=== PATIENT | female | born 1980 | race African-American/Black ===

== ENCOUNTER 2016-09-29 08:08 | Outpatient (CLI) | payer MEDICARE, OTHER ==
[2016-09-29 09:13] LABS: Blood, Urine Negative (Negative); Clarity Cloudy (Clear); Glucose, Urine (Dipstick) Negative (Negative); Leukocyte Trace (Negative); Nitrite Negative (Negative); Protein, Urine (Dipstick) > or equal to 300 mg/dL (Neg-Trace); Specific Gravity, Urine 1.015 (1.005-1.030)
[2016-09-29 09:28] LABS: pH, Urine Greater/Equal 9.0 (5.0-9.0)
[2016-09-29 09:30] LABS: Bilirubin Negative (Negative); Icto Negative (Negative); RBC/HPF None Seen HPF (0-3); WBC/HPF 0-3 HPF (0-3)
[2016-09-29 09:31] LABS: Bacteria/HPF 4+ HPF (None Seen)
== END 2016-09-29 08:09 | disposition home or self-care (01) ==
LOC: NAV LAB 08:08
PROVIDERS: ATTEND Family Medicine
DX: R80.9 Proteinuria, unspecified (principal)
CPT/HCPCS: 81001; 87077; 87086; 87186

== ENCOUNTER 2016-10-10 23:09 | Emergency (ER) | payer MEDICARE, OTHER ==
[2016-10-10] MEDS ORDERED: diphenhydrAMINE HCl 50 MG/ML 1 ML VIAL ONE (23:23)
[2016-10-10] MEDS ORDERED: Acetaminophen 500 MG TAB ONE (23:23)
== END 2016-10-10 23:55 | disposition home or self-care (01) ==
LOC: NAV ERS 23:09
DX: T78.40XA Allergy, unspecified, initial encounter (principal); K21.9 Gastro-esophageal reflux disease without esophagitis
CPT/HCPCS: 96372; J1200

== ENCOUNTER 2016-11-10 19:28 | Emergency (ER) | payer MEDICARE, OTHER ==
[2016-11-10] MEDS ORDERED: diphenhydrAMINE HCl 50 MG/ML 1 ML VIAL ONE (20:09)
[2016-11-10] MEDS ORDERED: Ketorolac Tromethamine 30 MG/ML VIAL ONE (20:09)
[2016-11-10] MEDS ORDERED: Sodium Chloride 0.9% 1,000 ML ONE (20:09)
[2016-11-10] MEDS ORDERED: Prochlorperazine 10 MG/2 ML VIAL ONE (20:09)
[2016-11-10 20:36] LABS: #Lymphocytes 2.8 thou/uL (1.20-3.40); #Monocytes 0.4 thou/uL (0.11-0.59); %Basophils 0.6 % (0.0-1.0); %Eosinophils 0.5 % (0.0-10.0); %Lymphocytes 38.5 % (21.0-51.0); %Monocytes 5.6 % (0.0-10.0); %Neutrophils 54.8 % (42.0-75.0); Hemoglobin 12.6 g/dL (12.0-16.0); Mean Corpuscular HGB CONC 31.1 g/dL (32.0-36.0); Mean Corpuscular Hemoglobin 25.8 pg (27.0-31.0); Mean Platelet Volume 6.4 fL (7.4-10.4); Platelet Count 245 thou/uL (130-400); RBC Distribution Width 14.4 % (11.5-14.5); Red Blood Cell (RBC) Count 4.87 mill/uL (4.20-5.40); White Blood Cell (WBC) Count 7.2 thou/uL (4.8-10.8)
[2016-11-10 20:37] LABS: Pregnancy Test - Urine (BHCG) Negative (Negative); Pregu Control Background? CLEAR/WHITE (CLR/WHITE); Pregu Control Bar Appear? YES (CONTROL BAR); Specific Gravity 1.021 (1.002-1.036)
[2016-11-10 20:41] LABS: Amphetamine Not Detected (NotDetected); Barbiturates Screen Detected (NotDetected); Benzodiazepine Screen Not Detected (NotDetected); Cocaine Metabolite Screen Not Detected (NotDetected); Medtox Control Line Valid? VALID (VALID); Methadone Not Detected (NotDetected); Methamphetamine Not Detected (NotDetected); Opiate Screen Not Detected (NotDetected); Oxycodone Screen Not Detected (NotDetected); Phencyclidine (PCP) Not Detected (NotDetected); THC/Cannabinoid Screen Not Detected (NotDetected); Tricyclic Screen Not Detected (NotDetected)
[2016-11-10 20:50] LABS: ALT (SGPT) 6 U/L (8-55); AST (SGOT) 18 U/L (5-34); Albumin 4.5 g/dL (3.5-5.0); Alkaline Phosphatase 65 U/L (40-150); Anion Gap 20 mmol/L (10-20); BUN (Urea Nitrogen) 11 mg/dL (7.0-18.7); Bilirubin, Total 0.4 mg/dL (0.2-1.2); CRP (Inflammatory) Less than 0.50 mg/dL (= or < 0.5); Calc. Creatinine Clearance 0 mL/min (70-130); Carbon Dioxide 28 mmol/L (22-29); Chloride 100 mmol/L (98-107); Estimated GFR-MDRD Greater than 90; Glucose 123 mg/dL (70-105); Potassium 3.3 mmol/L (3.5-5.1); Protein, Total 7.5 g/dL (6.0-8.3); Sodium 145 mmol/L (136-145)
--- NOTE | 2016-11-10 21:33 | CT ---
NONCONTRAST CT HEAD: Date: 11-10-16 History: Headache for one week with nausea. FINDINGS: There is no evidence of a hemorrhage, acute infarction, mass effect or midline shift. Ventricular sy stem is normal in size, shape and position. Visualized paranasal sinuses and mastoid air cells are c lear. Calvarial structures are intact. IMPRESSION: No acute intracranial abnormality demonstrated. POS: [facility]
== END 2016-11-10 22:00 | disposition home or self-care (01) ==
LOC: NAV ERS 19:28
DX: R51 Headache (principal); K21.9 Gastro-esophageal reflux disease without esophagitis
CPT/HCPCS: 70450; 80053; 80306; 81025; 85025; 85652; 86140; 96361; 96374; 96375; J0780; J1200; J1885; J7050

== ENCOUNTER 2017-05-02 21:02 | Emergency (ER) | payer MEDICARE, OTHER ==
[2017-05-02] MEDS ORDERED: Hydrocodone-Acetamin 15 ML UDCUP ONE (22:15)
[2017-05-02] MEDS ORDERED: Ibuprofen 200 MG TAB ONE (22:15)
[2017-05-02] MEDS ORDERED: Oseltamivir 75 MG CAP ONE (22:15)
== END 2017-05-02 22:19 | disposition home or self-care (01) ==
LOC: NAV ERS 21:02
DX: J11.1 Influenza due to unidentified influenza virus with other respiratory manifestations (principal); K21.9 Gastro-esophageal reflux disease without esophagitis; Z79.899 Other long term (current) drug therapy
CPT/HCPCS: 99283

== ENCOUNTER 2017-08-24 16:18 | Emergency (ER) | payer MEDICARE, OTHER ==
[2017-08-24] MEDS ORDERED: diphenhydrAMINE 50 MG/ML VIAL ONE (16:47)
[2017-08-24] MEDS ORDERED: Prochlorperazine 10 MG/2 ML VIAL ONE (16:48)
[2017-08-24] MEDS ORDERED: Ketorolac Tromethamine 30 MG/ML VIAL ONE (16:48)
== END 2017-08-24 17:45 | disposition home or self-care (01) ==
LOC: NAV ERS 16:18
DX: R51 Headache (principal); K21.9 Gastro-esophageal reflux disease without esophagitis; Z79.899 Other long term (current) drug therapy
CPT/HCPCS: 96365; 96375; J0780; J1200; J1885

== ENCOUNTER 2017-09-19 20:46 | Emergency (ER) | payer MEDICARE, OTHER | END 2017-09-19 21:30 | disposition home or self-care (01) | LOC: NAV ERS 20:46 | DX: R03.0 Elevated blood-pressure reading, without diagnosis of hypertension (principal); K02.9 Dental caries, unspecified; K21.9 Gastro-esophageal reflux disease without esophagitis; Z79.899 Other long term (current) drug therapy | CPT/HCPCS: 99283 ==

== ENCOUNTER 2017-11-21 00:14 | Observation (INO) | payer MEDICARE, OTHER ==
[2017-11-21 00:41] LABS: Bilirubin Negative (Negative); Blood, Urine Negative (Negative); Clarity Clear (Clear); Glucose, Urine (Dipstick) Negative (Negative); Leukocyte Trace (Negative); Nitrite Negative (Negative); Protein, Urine (Dipstick) 100 mg/dL (Neg-Trace)
[2017-11-21 00:42] LABS: Pregnancy Test - Urine (BHCG) Negative (Negative); Pregu Control Background? CLEAR/WHITE (CLR/WHITE); Pregu Control Bar Appear? YES (CONTROL BAR)
[2017-11-21 00:43] LABS: pH, Urine Greater/Equal 9.0 (5.0-9.0)
[2017-11-21 00:44] LABS: Bacteria/HPF Rare-Few HPF (None Seen); RBC/HPF None Seen HPF (0-3); WBC/HPF 0-3 HPF (0-3)
[2017-11-21] MEDS ORDERED: Lidocaine Viscous Sol 2% 15 ml UD Cup ONE (00:46)
[2017-11-21] MEDS ORDERED: Mag-Al Plus 1200 MG/1200 MG/120 MG/30 ML UDCUP ONE (00:46)
[2017-11-21] MEDS ORDERED: Pantoprazole 40 MG VIAL ONE (00:46)
[2017-11-21] MEDS ORDERED: Ondansetron HCl/PF 4 MG/2 ML Vial ONE (00:46)
[2017-11-21 01:12] LABS: Anisocytosis SLIGHT = 6-15 cells (100X) (0-5/hpf); Eosinophils 1 % (0-10); Hemoglobin 11.9 g/dL (12.0-16.0); Lymphocytes 41 % (21-51); MDiff Complete? YES; Mean Corpuscular HGB CONC 30.9 g/dL (32.0-36.0); Mean Corpuscular Hemoglobin 24.5 pg (27.0-31.0); Mean Corpuscular Volume 79.3 fL (78.0-98.0); Mean Platelet Volume 6.3 fL (7.4-10.4); Microcytosis SLIGHT = 6-15 cells (100X) (0-5/hpf); Monocytes 7 % (0-10); Neutrophil 41 % (42-75); Ovalocytes SLIGHT = 2-5 cells (100X) (0-1/hpf); PLT Morphology Comment Appears Adequate; Platelet Count 343 thou/uL (130-400); Poikilocytosis SLIGHT = 6-15 cells (100X) (0-5/hpf); RBC Distribution Width 13.7 % (11.5-14.5); Reactive Lymphocytes 10 % (0-10); Red Blood Cell (RBC) Count 4.85 mill/uL (4.20-5.40); White Blood Cell (WBC) Count 7.7 thou/uL (4.8-10.8)
[2017-11-21 01:16] LABS: ALT (SGPT) 7 U/L (8-55); AST (SGOT) 21 U/L (5-34); Albumin 4.4 g/dL (3.5-5.0); Alkaline Phosphatase 61 U/L (40-150); Anion Gap 19 mmol/L (10-20); BUN (Urea Nitrogen) 11 mg/dL (7.0-18.7); Bilirubin, Total 0.6 mg/dL (0.2-1.2); Calc. Creatinine Clearance 0 mL/min (70-130); Calcium 10.1 mg/dL (7.8-10.44); Carbon Dioxide 34 mmol/L (22-29); Chloride 91 mmol/L (98-107); Estimated GFR-MDRD Greater than 90; Globulin 3.4 g/dL (2.4-3.5); Glucose 118 mg/dL (70-105); Lipase 39 U/L (8-78); Protein, Total 7.8 g/dL (6.0-8.3); Sodium 142 mmol/L (136-145)
[2017-11-21 01:19] LABS: Potassium 2.1 mmol/L (3.5-5.1)
[2017-11-21] MEDS ORDERED: Potassium Chloride 10 MEQ/100 ML PREMIX BAG ONE ×2 (01:22→08:15)
[2017-11-21] MEDS ORDERED: Potassium Chloride 20 MEQ TAB ONE (02:01)
[2017-11-21 04:09] VITALS: BMI 19.6
[2017-11-21] MEDS ORDERED: Ondansetron HCl/PF 4 MG/2 ML Vial IVP PRN ×2 (05:12→06:35)
[2017-11-21 05:23] LABS: Anion Gap 14 mmol/L (10-20)
[2017-11-21 05:28] LABS: BUN (Urea Nitrogen) 10 mg/dL (7.0-18.7); Calc. Creatinine Clearance 96 mL/min (70-130); Calcium 8.4 mg/dL (7.8-10.44); Carbon Dioxide 29 mmol/L (22-29); Chloride 100 mmol/L (98-107); Estimated GFR-MDRD Greater than 90; Glucose 96 mg/dL (70-105); Potassium 2.7 mmol/L (3.5-5.1); Sodium 140 mmol/L (136-145)
[2017-11-21] MEDS ORDERED: Potassium Chloride 20 MEQ in Premix Bag 1 BAG IVPB SCH (06:00)
[2017-11-21 06:34] LABS: Potassium 2.5 mmol/L (3.5-5.1)
[2017-11-21] MEDS ORDERED: Pantoprazole 40 MG VIAL IVP SCH (09:00)
[2017-11-21] MEDS: Potassium Chloride 20 MEQ in Premix Bag 1 BAG IVPB SCH ×3 (09:22→20:36)
[2017-11-21] MEDS: FLUoxetine HCl 20 MG CAP PO SCH (09:27)
[2017-11-21] MEDS: Potassium Chloride 10 MEQ TAB PO SCH ×2 (09:27→20:36)
--- NOTE | 2017-11-21 12:23 | HP ---
DATE OF ADMISSION: 11/21/2017. HISTORY OF PRESENT ILLNESS: Ms. Blancas is a 36-year-old black female that comes to the emergency room complaining of vomiting, right upper quadrant epigastric pain and feels like something hung up i n her stomach. She was seen in the emergency room and evaluated. She was found to be significantly hypokalemic with a potassium of 2.1. She was given oral and IV potassium and admitted for further hy dration. She was given a couple liters of fluid and IV potassium and states she felt much better. S he was admitted to the hospital in observation for continue correction of her potassium. The patient states she feels much better this morning, but she still has some epigastric tenderness. She has seen Dr. Brandt Helms several years ago and had evaluation at that time, which was unremarkabl e. She has been given oral potassium and IV potassium and the potassium was 2.7 and 2.5 respectively this morning. It was felt that we need to probably continue her in the hospital in an extended obse rvation for continued oral and IV potassium. PAST MEDICAL HISTORY: Basically is unremarkable except for years and years of this epigastric pain. She has a primary care doctor in [facility], but cannot remember his name, but just knows it starts with the Z. ALLERGIES: Patient has no known drug allergies. PRESENT MEDICATIONS: Reveal she takes fluoxetine 20 mg every day, and now she is on potassium 30 mEq twice a day along with 20 mEq IV q.6 hours. SOCIAL HISTORY: Reveals the patient does not smoke, does not drink any alcohol. Does not do any narciso gs. FAMILY HISTORY: Unremarkable. PAST SURGICAL HISTORY: Reveals the patient had no surgeries. PSYCHIATRIC HISTORY: Reveals the patient has anxiety and depressive disorder, she is on fluoxetine 2 0 mg daily. REVIEW OF SYSTEMS: Constitutional: The patient denies fever, chills, cough, cold or congestion. De nies any GI symptoms recently. HEENT: She denies cough, cold, congestion, sore throat or rhinorrhea . Respiratory: The patient denies shortness of breath, wheezing, sneezing or cough. Cardiac: The patient denies palpitations, chest pain, racing or skipping heartbeat. Gastrointestinal: The patien t complains of epigastric pain. Denies any diarrhea or constipation. She does report nausea and deandra e vomiting at times. She states that she is not sure what she ate, but something irritated her stoma ch. Genitourinary: Reveals the patient denies frequency, urgency, hematuria or dysuria. Extremitie s: Revealed the patient denies any arthritis, musculoskeletal pain. Neurological: The patient carlo es headache, focal neurological deficits. The patient denies any dizziness. PHYSICAL EXAMINATION: GENERAL: This is a well-developed, well-nourished, very pleasant black female in no apparent distres s at this time. HEENT: Reveals normocephalic, nontraumatic cranium. Pupils are equally round and reactive. Extraoc ular movements are intact. The patient is nonicteric, conjunctivae are normal. NECK: Supple, without masses, nodes or bruits. Trachea is midline. CHEST: Clear to auscultation. No rales, rhonchi, wheezes or cough is noted. HEART: Reveals a regular rate and rhythm without murmurs, gallops or rubs. ABDOMEN: Reveals some epigastric tenderness, no right upper quadrant tenderness, right lower quadran t tenderness is noted. Bowel sounds are normal and positive in all four quadrants. No hepatosplenom egaly is noted. Patient has no rebound or guarding. GENITOURINARY: Deferred. EXTREMITIES: Reveal no clubbing, cyanosis or edema. ASSESSMENT: 1. Epigastric tenderness with prior evaluation by Dr. Brandt Helms, couple years ago. 2. Hypokalemia, which is improved. 3. Dehydration. 4. Anxiety and depressive disorder. PLAN: 1. The patient has been admitted and she is getting oral and IV potassium. 2. We will make sure she has a bland soft diet at this time. 3. Continue supportive care. 4. Repeat labs about 0430, which are to be called directly to me at that time. 5. At that time, we will see if we need to continue or slow down her IV and/or oral potassium. 6. After discharge, the patient will have follow up with Dr. Brandt Helms or someone in his office for further epigastric pain evaluation. 7. Continue to monitor the patient's oral intake and pain management.
[2017-11-21 17:04] LABS: Anion Gap 11 mmol/L (10-20); BUN (Urea Nitrogen) 8 mg/dL (7.0-18.7); Calc. Creatinine Clearance 98 mL/min (70-130); Calcium 8.1 mg/dL (7.8-10.44); Carbon Dioxide 25 mmol/L (22-29); Chloride 108 mmol/L (98-107); Estimated GFR-MDRD Greater than 90; Glucose 130 mg/dL (70-105); Potassium 3.3 mmol/L (3.5-5.1); Sodium 141 mmol/L (136-145)
[2017-11-22 05:07] LABS: #Lymphocytes 2.1 thou/uL (1.20-3.40); #Monocytes 0.3 thou/uL (0.11-0.59); #Neutrophils 2.8 thou/uL (1.40-6.50); %Basophils 0.3 % (0.0-1.0); %Eosinophils 0.7 % (0.0-10.0); %Lymphocytes 40.3 % (21.0-51.0); %Monocytes 6.1 % (0.0-10.0); %Neutrophils 52.6 % (42.0-75.0); Anisocytosis MODERATE=16-30 cells (100X) (0-5/hpf); Hemoglobin 9.6 g/dL (12.0-16.0); MDiff Complete? YES; Mean Corpuscular HGB CONC 30.9 g/dL (32.0-36.0); Mean Corpuscular Hemoglobin 24.8 pg (27.0-31.0); Mean Corpuscular Volume 80.3 fL (78.0-98.0); Mean Platelet Volume 5.7 fL (7.4-10.4); PLT Morphology Comment Appears Adequate; Platelet Count 239 thou/uL (130-400); RBC Distribution Width 14.6 % (11.5-14.5); Red Blood Cell (RBC) Count 3.87 mill/uL (4.20-5.40); White Blood Cell (WBC) Count 5.3 thou/uL (4.8-10.8)
[2017-11-22 05:17] LABS: Anion Gap 10 mmol/L (10-20); BUN (Urea Nitrogen) 9 mg/dL (7.0-18.7); Calc. Creatinine Clearance 102 mL/min (70-130); Calcium 8.5 mg/dL (7.8-10.44); Carbon Dioxide 24 mmol/L (22-29); Chloride 111 mmol/L (98-107); Estimated GFR-MDRD Greater than 90; Glucose 126 mg/dL (70-105); Potassium 3.7 mmol/L (3.5-5.1); Sodium 141 mmol/L (136-145)
--- NOTE | 2017-11-22 07:31 | DIS ---
DATE OF ADMISSION: 11/21/2017 DATE OF DISCHARGE: 11/22/2017 Ms. Blancas is a very pleasant 36-year-old black female that came to the emergency room complaining of nausea, vomiting, right upper epigastric pain. She was seen in the emergency room, found to be h ypokalemic with a potassium 2.0 and dehydrated. She was given IV fluids and IV potassium and oral po tassium. She was kept on a full liquid diet yesterday and has tolerated everything. This morning, h er potassium is up to 3.7. She states she has no abdominal pain. She states she is hungry. She sta rula she wants to go home. She states she is back to her normal self. Vital signs, this morning, reveal blood pressure 110/62, pulse 64, respirations 18-20 on room air, O2 sat 96%-97% on room air, T-max 98.6. Patient's laboratory this morning reveals white count 5300, hemoglobin 9.6, hematocrit 31.1 from hemo dilution from IV fluids and platelets were 239. Sodium 141, potassium 3.7, chloride 111, carbon dioxide 24 with a BUN of 9, creatinine 0.62, GFR grea ter than 90. Sugar this morning is 126. PHYSICAL EXAMINATION: GENERAL: This is a well-developed, well-nourished, very pleasant black female that pops out of bed a s soon as I walked into the door. HEENT: Reveals normocephalic, nontraumatic cranium. Pupils equally round and reactive. Extraocular movements intact. Nose and throat slightly dry. NECK: Supple, without mass, nodes, bruits. CHEST: Clear to auscultation. No rales, rhonchi, or wheezes are heard. HEART: Reveals a regular rate and rhythm without murmurs, gallops, or rubs. ABDOMEN: Soft, nontender, without organomegaly. Normal bowel sounds are noted. No rebound or guard ing is noted. Epigastric area is nontender anymore. Patient has no rebound or guarding. GENITOURINARY EXAM: Deferred. EXTREMITIES: Reveal no clubbing, cyanosis, and no edema. ASSESSMENT: 1. Hypokalemia, which is resolved. 2. Dehydration, resolved. 3. Anxiety/depressive disorder. Continue fluoxetine. 4. Epigastric tenderness with prior evaluation by Dr. Brandt Helms many years ago. Recommend the desmond ent see her PCP and get referred back for further evaluation for him since she has been having ongoin g problems with her epigastric area for the last 1-2 years. PLAN: 1. The patient is being discharged this morning. 2. Encouraged the patient to eat bananas, potatoes, and other things that have potassium. 3. See the patient's PCP within the next week. 4. Continue supportive care. 5. Referral to Dr. Brandt Helms from the patient's PCP.
[2017-11-22 08:17] VITALS: BP 102/54; TEMP 97.9
[2017-11-22] MEDS: Potassium Chloride 10 MEQ TAB PO SCH (09:24)
[2017-11-22] MEDS: FLUoxetine HCl 20 MG CAP PO SCH (09:24)
== END 2017-11-22 09:41 | disposition home or self-care (01) ==
LOC: NAV ERS 00:14 → NAV ACUTE 03:41
PROVIDERS: ADMIT Family Medicine; ATTEND Family Medicine
DX: E87.6 Hypokalemia (principal); E86.0 Dehydration; F41.9 Anxiety disorder, unspecified; F32.9 Major depressive disorder, single episode, unspecified; Z79.899 Other long term (current) drug therapy
CPT/HCPCS: 36415; 80048; 80053; 81003; 81015; 81025; 83690; 85025; 93005; 96365; 96366; 96375; 96376; C9113; G0378; J2405; J3480

== ENCOUNTER 2017-12-16 16:17 | Emergency (ER) | payer MEDICARE, OTHER ==
[2017-12-16] MEDS ORDERED: Potassium Chloride 10 MEQ/100 ML PREMIX BAG ONE ×4 (16:56→21:25)
[2017-12-16] MEDS ORDERED: Sodium Chloride 0.9% 1,000 ML ONE (16:56)
[2017-12-16] MEDS ORDERED: Potassium Chloride 20 MEQ TAB ONE ×2 (21:25→23:44)
[2017-12-16] MEDS ORDERED: Ondansetron PF 4 MG/2 ML Vial ONE (22:09)
[2017-12-16 23:21] LABS: Sodium 139 mmol/L (136-145)
[2017-12-16 23:22] LABS: Anion Gap 12 mmol/L (10-20); Carbon Dioxide 28 mmol/L (22-29); Chloride 101 mmol/L (98-107); Potassium 2.3 mmol/L (3.5-5.1)
[2017-12-16 23:23] LABS: Calc. Creatinine Clearance 0 mL/min (70-130); Calcium 8.5 mg/dL (7.8-10.44); Estimated GFR-MDRD Greater than 90; Glucose 101 mg/dL (70-105)
[2017-12-16 23:24] LABS: BUN (Urea Nitrogen) 13 mg/dL (7.0-18.7)
[2017-12-17 00:02] LABS: Magnesium 1.8 mg/dL (1.6-2.6); Phosphorus 2.6 mg/dL (2.3-4.7)
[2017-12-17 00:31] LABS: Bilirubin Small (Negative); Blood, Urine Trace (Negative); Clarity Clear (Clear); Glucose, Urine (Dipstick) Negative (Negative); Leukocyte Negative (Negative); Nitrite Negative (Negative); Protein, Urine (Dipstick) 100 mg/dL (Neg-Trace); Specific Gravity, Urine 1.015 (1.005-1.030)
[2017-12-17 00:33] LABS: pH, Urine Greater/Equal 9.0 (5.0-9.0)
[2017-12-17 00:37] LABS: Bacteria/HPF 1+ HPF (None Seen); WBC/HPF 0-3 HPF (0-3)
[2017-12-17 00:38] LABS: Amphetamine Not Detected (NotDetected); Barbiturates Screen Not Detected (NotDetected); Benzodiazepine Screen Not Detected (NotDetected); Cocaine Metabolite Screen Not Detected (NotDetected); Medtox Control Line Valid? VALID (VALID); Methadone Not Detected (NotDetected); Methamphetamine Not Detected (NotDetected); Opiate Screen Not Detected (NotDetected); Oxycodone Screen Not Detected (NotDetected); Phencyclidine (PCP) Not Detected (NotDetected); THC/Cannabinoid Screen Not Detected (NotDetected); Tricyclic Screen Not Detected (NotDetected)
== END 2017-12-17 00:44 | disposition short-term general hospital (02) ==
LOC: NAV ERS 16:17
DX: E87.6 Hypokalemia (principal); K21.9 Gastro-esophageal reflux disease without esophagitis
CPT/HCPCS: 36415; 80306; 81003; 81015; 83735; 84100; 84443; 93005; 96361; 96365; 96366; 96375; J2405; J3480; J7050

== ENCOUNTER 2018-03-23 20:09 | Emergency (ER) | payer MEDICARE, MEDICAID | END 2018-03-23 20:41 | disposition home or self-care (01) | LOC: NAV ERS 20:09 | DX: S00.03XA Contusion of scalp, initial encounter (principal); K21.9 Gastro-esophageal reflux disease without esophagitis; Z79.899 Other long term (current) drug therapy; W22.8XXA Striking against or struck by other objects, initial encounter | CPT/HCPCS: 99283 ==

== ENCOUNTER 2018-10-01 21:13 | Emergency (ER) | payer MEDICARE, OTHER ==
[2018-10-01] MEDS ORDERED: Naproxen 500 MG TAB ONE (21:58)
--- NOTE | 2018-10-01 22:26 | RAD ---
RADIOGRAPH LEFT HAND 3 VIEWS: 10/01/18 HISTORY: 37-year-old female with left hand pain and decreased range of motion. FINDINGS: No fracture or dislocation. No high grade DJD. No periostitis, permeative lesion, osteolytic lesion, or osteoblastic lesion. No major abnormal soft tissue calcifications. Bone mineralization is normal. IMPRESSION: Negative. POS: [facility]
== END 2018-10-01 22:00 | disposition home or self-care (01) ==
LOC: NAV ERS 21:13
DX: M77.9 Enthesopathy, unspecified (principal); K21.9 Gastro-esophageal reflux disease without esophagitis; Z79.899 Other long term (current) drug therapy

== ENCOUNTER 2018-11-12 12:36 | Inpatient (IN) | payer MEDICARE, OTHER ==
[2018-11-12 13:09] LABS: #Lymphocytes 1.5 thou/uL (1.20-3.40); #Monocytes 0.3 thou/uL (0.11-0.59); #Neutrophils 2.5 thou/uL (1.40-6.50); %Basophils 0.9 % (0.0-1.0); %Eosinophils 0.6 % (0.0-10.0); %Lymphocytes 34.5 % (21.0-51.0); %Monocytes 7.2 % (0.0-10.0); %Neutrophils 56.8 % (42.0-75.0); Hemoglobin 11.2 g/dL (12.0-16.0); Mean Corpuscular HGB CONC 29.9 g/dL (32.0-36.0); Mean Corpuscular Hemoglobin 23.2 pg (27.0-31.0); Mean Corpuscular Volume 77.6 fL (78.0-98.0); Mean Platelet Volume 5.8 fL (7.4-10.4); Platelet Count 300 thou/uL (130-400); RBC Distribution Width 14.9 % (11.5-14.5); Red Blood Cell (RBC) Count 4.82 mill/uL (4.20-5.40); White Blood Cell (WBC) Count 4.4 thou/uL (4.8-10.8)
[2018-11-12 13:26] LABS: ALT (SGPT) 6 U/L (8-55); AST (SGOT) 17 U/L (5-34); Albumin 4.2 g/dL (3.5-5.0); Alkaline Phosphatase 57 U/L (40-110); Anion Gap 15 mmol/L (10-20); BUN (Urea Nitrogen) 12 mg/dL (7.0-18.7); Bilirubin, Total 0.5 mg/dL (0.2-1.2); Calc. Creatinine Clearance 0 mL/min (70-130); Calcium 9.6 mg/dL (7.8-10.44); Carbon Dioxide 34 mmol/L (22-29); Chloride 94 mmol/L (98-107); Estimated GFR-MDRD Greater than 90; Glucose 132 mg/dL (70-105); Protein, Total 7.2 g/dL (6.0-8.3); Sodium 141 mmol/L (136-145)
[2018-11-12 13:30] LABS: Potassium 2.3 mmol/L (3.5-5.1)
[2018-11-12] MEDS ORDERED: Potassium Chloride 20 MEQ TAB ONE (14:04)
[2018-11-12] MEDS ORDERED: Potassium Chloride 20 MEQ/100 ML PREMIX BAG ONE (14:04)
[2018-11-12] MEDS ORDERED: Sodium Chloride 0.9% 1,000 ML ONE ×2 (14:10→14:58)
[2018-11-12 15:49] VITALS: BMI 20.9
[2018-11-12] MEDS ORDERED: Ondansetron ODT 4 MG TAB PO PRN (17:55)
[2018-11-12] MEDS: NS 0.9% w/ 40 MEQ KCL 1,000 ML IV SCH (18:26)
[2018-11-12] MEDS: Ondansetron ODT 4 MG TAB SL SCH (20:51)
[2018-11-12] MEDS: Naproxen 500 MG TAB PO SCH (20:51)
[2018-11-13] MEDS: NS 0.9% w/ 40 MEQ KCL 1,000 ML IV SCH ×2 (04:26→14:28)
[2018-11-13 05:34] LABS: Anion Gap 10 mmol/L (10-20)
[2018-11-13 05:46] LABS: BUN (Urea Nitrogen) 11 mg/dL (7.0-18.7); Calc. Creatinine Clearance 109 mL/min (70-130); Calcium 7.7 mg/dL (7.8-10.44); Carbon Dioxide 26 mmol/L (22-29); Chloride 111 mmol/L (98-107); Estimated GFR-MDRD Greater than 90; Glucose 103 mg/dL (70-105); Potassium 3.4 mmol/L (3.5-5.1); Sodium 144 mmol/L (136-145)
--- NOTE | 2018-11-13 07:33 | HP ---
CHIEF COMPLAINT: Recurrent nausea and vomiting, weakness, and recurrent hypokalemia. HISTORY OF PRESENT ILLNESS: The patient is a very pleasant 37-year-old black female, who is a very poor historian, who presents from her doctor's office with a complaint of weakness and a finding of significant hypokalemia. She was seen in the emergency room and found to have a potassium of 2.3. Apparently, this is a recurrent history as she has had several admissions to the hospital for this diagnosis. She has had a normal gastric emptying study, but has had history of gastroesophageal reflux symptoms, but is not on any recurrent medication at this time. She has vomited somewhat prior to presentation to the emergency room. She denies any specific complaints except for mild epigastric pain occasionally. She has no fever or chills. No diarrhea. She does not know her diagnosis or even the name of her consulting physicians. She denies any specific drug or alcohol use. PAST MEDICAL HISTORY: Obtained from old chart as the patient is a very poor historian and is positive only for gastroesophageal reflux. ALLERGIES: SHE HAS NO KNOWN ALLERGIES. SOCIAL HISTORY: As mentioned above. She lives with her . She is a nonsmoker and nondrinker per history. REVIEW OF SYSTEMS: HEENT: She denies headaches, dizziness, change in vision or hearing, hoarseness, or dysphagia. PULMONARY: She denies cough, sputum production, pneumonia, asthma, or tuberculosis. CARDIOVASCULAR: She denies chest pain, orthopnea, paroxysmal nocturnal dyspnea, or edema. GASTROINTESTINAL: She has above-mentioned recurrent vomiting and occasional epigastric pain. She has no anorexia or weight loss. She has no change in her bowel movements with no diarrhea. GENITOURINARY: She denies dysuria, hematuria, or nocturia. MUSCULOSKELETAL: She complains of mild weakness. No particular cramps. NEUROLOGIC: She denies localized numbness or weakness in arms or extremities. PHYSICAL EXAMINATION: GENERAL: The patient is a young black female, sitting up in the bed, eating supper, no distress but has vomited in the emergency room. VITAL SIGNS: Show her to have a temperature of 97.1, pulse 60, respirations 16, O2 sats 100% on room air, and blood pressure is 100/63. HEENT: Pupils are equal, round, and reactive to light and accommodation. Sclerae anicteric. Conjunctivae pale. Oral mucous membranes are well hydrated. NECK: Supple. There are no nodes or masses. JVP is not elevated. LUNGS: Clear. CARDIAC: Shows regular rhythm. No gallops or murmurs. ABDOMEN: Soft, nontender. No masses or organomegaly. SKIN AND EXTREMITIES: Display no edema, clubbing, or cyanosis. NEUROLOGICAL: Intact. LABORATORY DATA: As mentioned above showed her to have a potassium 2.3, sodium 141, chloride 94, bicarb 34, BUN 12, creatinine 0.75, glucose 132, calcium 9.6, AST 17, ALT 6, and alkaline phosphatase 57, albumin 4.2, and globulin 3.0. White count 4400, hematocrit 37, and hemoglobin 11. ASSESSMENT: Recurrent hypokalemia, referred to the emergency room for IV potassium. Will be admitted to the hospital for IV supplementation. She appears to be in no distress, but does have some nausea and vomiting. It is unsure whether the patient has been treated with Reglan in the past and will be treated with Zofran and Reglan as well as supplemental oral potassium 20 mEq twice daily as well as IV potassium-normal saline with 40 mEq/L at 100 mL an hour. She will have repeat basement profile after admission again in the a.m. and hopefully will be discharged within the next 24 to 48 hours. Job ID: [id number]
[2018-11-13 08:24] LABS: Amphetamine Not Detected (NotDetected); Barbiturates Screen Not Detected (NotDetected); Benzodiazepine Screen Not Detected (NotDetected); Cocaine Metabolite Screen Not Detected (NotDetected); Medtox Control Line Valid? VALID (VALID); Methadone Not Detected (NotDetected); Methamphetamine Not Detected (NotDetected); Opiate Screen Not Detected (NotDetected); Oxycodone Screen Not Detected (NotDetected); Phencyclidine (PCP) Not Detected (NotDetected); THC/Cannabinoid Screen Not Detected (NotDetected); Tricyclic Screen Not Detected (NotDetected)
[2018-11-13] MEDS: Naproxen 500 MG TAB PO SCH (10:03)
[2018-11-13] MEDS: Ondansetron ODT 4 MG TAB SL SCH (10:03)
[2018-11-13] MEDS: Potassium Chloride 20 MEQ TAB PO SCH ×2 (10:04→17:28)
[2018-11-13 14:34] LABS: Anion Gap 11 mmol/L (10-20); BUN (Urea Nitrogen) 11 mg/dL (7.0-18.7); Calc. Creatinine Clearance 108 mL/min (70-130); Calcium 8.1 mg/dL (7.8-10.44); Carbon Dioxide 25 mmol/L (22-29); Chloride 113 mmol/L (98-107); Estimated GFR-MDRD Greater than 90; Glucose 95 mg/dL (70-105); Potassium 3.7 mmol/L (3.5-5.1); Sodium 145 mmol/L (136-145)
[2018-11-13 16:17] VITALS: BP 96/52; TEMP 98.4
[2018-11-13] MEDS ORDERED: Metoclopramide HCl 10 MG TAB PO SCH (21:00)
--- NOTE | 2018-11-15 14:10 | DIS ---
DATE OF ADMISSION: 11/12/2018 DATE OF DISCHARGE: 11/13/2018 FINAL DIAGNOSES: 1. Recurrent severe hypokalemia. 2. Recurrent nausea and vomiting with negative gastrointestinal evaluation except for gastroesophageal reflux. HISTORY OF PRESENT ILLNESS: The patient is a very pleasant 37-year-old black female, very poor historian, presented from her doctor's office with severe weakness and hypokalemia, seen in the emergency room, found to have a potassium of 2.3. This was apparently a chronic diagnosis as she is noncompliant to her potassium supplementation. She was fairly asymptomatic except for the weakness. PHYSICAL EXAMINATION: VITAL SIGNS: Shows blood pressure 100/63, O2 saturation 100% on room air, pulse 60, respirations 16, O2 sats 100%. LUNGS: Clear. CARDIAC: Showed regular rhythm. She was started on supplemental oral potassium 20 mEq twice daily orally and IV potassium normal saline at 40 mEq/liter at 100 mL an hour. She had no complications with this and subsequently potassium increased to 3.3 later that night and 3.7 the next morning. She is felt to be stable to be discharged home. MEDICATIONS: She was discharged home on potassium 20 mEq twice daily. FOLLOWUP: She will follow up with her primary care physician in 1 week. Job ID: [id number]
== END 2018-11-13 18:02 | disposition home or self-care (01) | DRG 641 ==
LOC: NAV ERS 12:36 → NAV ACUTE 15:18 → OBSVTOIN 15:18
PROVIDERS: ADMIT Internal Medicine; ATTEND Internal Medicine
DX: E87.6 Hypokalemia (principal); K21.9 Gastro-esophageal reflux disease without esophagitis; Z91.14 Patient's other noncompliance with medication regimen
CPT/HCPCS: 36415; 80048; 80306; 85025; 93005; 96365; J3480; J7050; Q0162

== ENCOUNTER 2019-03-21 08:35 | Emergency (ER) | payer MEDICARE, OTHER ==
[2019-03-21] MEDS ORDERED: methylPREDNISolone Sod Succ/PF 125 MG/2 ML VIAL ONE (09:21)
== END 2019-03-21 09:41 | disposition home or self-care (01) ==
LOC: NAV ERS 08:35
DX: M25.552 Pain in left hip (principal); M25.551 Pain in right hip; M79.18 Myalgia, other site; E87.6 Hypokalemia; K21.9 Gastro-esophageal reflux disease without esophagitis; Z79.899 Other long term (current) drug therapy
CPT/HCPCS: 96372; 99283; J2930

== ENCOUNTER 2019-04-10 21:09 | Emergency (ER) | payer MEDICARE, OTHER | END 2019-04-10 21:43 | disposition home or self-care (01) | LOC: NAV ERS 21:09 | DX: K59.00 Constipation, unspecified (principal); R11.2 Nausea with vomiting, unspecified; K21.9 Gastro-esophageal reflux disease without esophagitis | CPT/HCPCS: 99283 ==

== ENCOUNTER 2020-11-16 18:21 | Emergency (ER) | payer MEDICARE, OTHER | END 2020-11-16 18:55 | disposition home or self-care (01) | LOC: NAV ERS 18:21 | DX: H00.012 Hordeolum externum right lower eyelid (principal); R11.2 Nausea with vomiting, unspecified; K21.9 Gastro-esophageal reflux disease without esophagitis; Z79.899 Other long term (current) drug therapy | CPT/HCPCS: 99283 ==

== ENCOUNTER 2020-11-28 11:28 | Emergency (ER) | payer MEDICARE, OTHER ==
[2020-11-28 12:10] LABS: #Lymphocytes 2.2 thou/uL (1.20-3.40); #Monocytes 0.3 thou/uL (0.11-0.59); #Neutrophils 3.2 thou/uL (1.40-6.50); %Basophils 0.6 % (0.0-1.0); %Eosinophils 0.4 % (0.0-10.0); %Lymphocytes 38.3 % (21.0-51.0); %Monocytes 5.2 % (0.0-10.0); %Neutrophils 55.5 % (42.0-75.0); Hemoglobin 13.7 g/dL (12.0-16.0); Mean Corpuscular HGB CONC 31.1 g/dL (32.0-36.0); Mean Corpuscular Hemoglobin 27.5 pg (27.0-31.0); Mean Corpuscular Volume 88.4 fL (78.0-98.0); Mean Platelet Volume 6.6 fL (7.4-10.4); Platelet Count 295 thou/uL (130-400); RBC Distribution Width 12.6 % (11.5-14.5); Red Blood Cell (RBC) Count 4.97 mill/uL (4.20-5.40); White Blood Cell (WBC) Count 5.7 thou/uL (4.8-10.8)
[2020-11-28 12:24] LABS: Anion Gap 17 mmol/L (10-20); BUN (Urea Nitrogen) 11 mg/dL (7.0-18.7); Calc. Creatinine Clearance 0 mL/min (70-130); Calcium 9.6 mg/dL (7.8-10.44); Carbon Dioxide 37 mmol/L (22-29); Chloride 90 mmol/L (98-107); Glucose 88 mg/dL (70-105); Magnesium 1.6 mg/dL (1.6-2.6); Sodium 141 mmol/L (136-145)
[2020-11-28 12:28] LABS: Potassium 2.6 mmol/L (3.5-5.1)
[2020-11-28] MEDS ORDERED: Potassium Chloride 10 MEQ/100 ML PREMIX BAG ONE ×2 (13:06→13:10)
[2020-11-28] MEDS ORDERED: Sodium Chloride 0.9% 1,000 ML ONE (13:06)
[2020-11-28] MEDS ORDERED: Potassium Chloride 20 MEQ/100 ML PREMIX BAG ONE (13:09)
== END 2020-11-28 16:50 | disposition home or self-care (01) ==
LOC: NAV ERS 11:28
DX: E87.6 Hypokalemia (principal); R11.2 Nausea with vomiting, unspecified; K21.9 Gastro-esophageal reflux disease without esophagitis
CPT/HCPCS: 80048; 83735; 85025; 93005; 96365; 96366; J3480; J7050

== ENCOUNTER 2021-09-27 19:26 | Emergency (ER) | payer OTHER ==
[2021-09-27] MEDS ORDERED: Ketorolac Tromethamine 30 MG/ML VIAL ONE (21:05)
== END 2021-09-27 21:40 | disposition home or self-care (01) ==
LOC: NAV ERS 19:26
DX: S63.502A Unspecified sprain of left wrist, initial encounter (principal); K21.9 Gastro-esophageal reflux disease without esophagitis; W01.0XXA Fall on same level from slipping, tripping and stumbling without subsequent striking against object, initial encounter; Y92.009 Unspecified place in unspecified non-institutional (private) residence as the place of occurrence of the external cause
CPT/HCPCS: J1885

== ENCOUNTER 2021-09-28 02:27 | Emergency (ER) | payer OTHER ==
[2021-09-28] MEDS ORDERED: Bacitracin 1 PK ONE (02:39)
[2021-09-28] MEDS ORDERED: Boostrix 0.5 ML (Tdap) VIAL ONE (02:39)
== END 2021-09-28 03:10 | disposition home or self-care (01) ==
LOC: NAV ERS 02:27
DX: S01.01XA Laceration without foreign body of scalp, initial encounter (principal); S50.312A Abrasion of left elbow, initial encounter; K21.9 Gastro-esophageal reflux disease without esophagitis; W19.XXXA Unspecified fall, initial encounter; S63.502A Unspecified sprain of left wrist, initial encounter; W01.0XXA Fall on same level from slipping, tripping and stumbling without subsequent striking against object, initial encounter; Y92.009 Unspecified place in unspecified non-institutional (private) residence as the place of occurrence of the external cause
CPT/HCPCS: 12001; 29125; 90471; 90715; 96372; J1885

== ENCOUNTER 2021-10-07 15:56 | Emergency (ER) | payer OTHER, MEDICARE | END 2021-10-07 16:30 | disposition home or self-care (01) | LOC: NAV ERS 15:56 | DX: S01.01XD Laceration without foreign body of scalp, subsequent encounter (principal); K21.9 Gastro-esophageal reflux disease without esophagitis; X58.XXXD Exposure to other specified factors, subsequent encounter ==

== ENCOUNTER 2021-10-18 22:19 | Emergency (ER) | payer OTHER ==
[2021-10-18] MEDS ORDERED: Naproxen 500 MG TAB ONE (22:57)
== END 2021-10-18 23:00 | disposition home or self-care (01) ==
LOC: NAV ERS 22:19
DX: M25.511 Pain in right shoulder (principal); M79.641 Pain in right hand; M79.631 Pain in right forearm; M79.621 Pain in right upper arm; T50.A95A Adverse effect of other bacterial vaccines, initial encounter; K21.9 Gastro-esophageal reflux disease without esophagitis
CPT/HCPCS: 99283

== ENCOUNTER 2023-06-30 11:06 | Emergency (ER) | payer MEDICAID, MEDICARE, OTHER | END 2023-06-30 12:10 | disposition home or self-care (01) | LOC: NAV ERS 11:06 | DX: H81.10 Benign paroxysmal vertigo, unspecified ear (principal); K21.9 Gastro-esophageal reflux disease without esophagitis; Z79.899 Other long term (current) drug therapy | CPT/HCPCS: 99284 ==

== ENCOUNTER 2023-08-10 16:12 | Emergency (ER) | payer OTHER ==
[2023-08-10 18:05] LABS: #Lymphocytes 1.7 thou/uL (1.20-3.40); #Monocytes 0.4 thou/uL (0.11-0.59); #Neutrophils 2.5 thou/uL (1.40-6.50); %Basophils 0.8 % (0.0-1.0); %Eosinophils 0.8 % (0.0-10.0); %Lymphocytes 35.8 % (21.0-51.0); %Monocytes 7.7 % (0.0-10.0); %Neutrophils 54.9 % (42.0-75.0); Hemoglobin 8.8 g/dL (12.0-16.0); Mean Corpuscular HGB CONC 29.2 g/dL (32.0-36.0); Mean Corpuscular Hemoglobin 21.4 pg (27.0-31.0); Mean Corpuscular Volume 73.2 fl (78.0-98.0); Mean Platelet Volume 5.7 fL (7.4-10.4); Platelet Count 299 10x3/uL (130-400); White Blood Cell (WBC) Count 4.6 10x3/uL (4.8-10.8)
[2023-08-10 18:06] LABS: ALT (SGPT) 8 U/L (8-55); AST (SGOT) 25 U/L (5-34); Albumin 4.1 g/dL (3.5-5.0); Alkaline Phosphatase 62 U/L (40-110); Anion Gap 15 mmol/L (10-20); BUN (Urea Nitrogen) 10 mg/dL (7.0-18.7); Bilirubin, Total 0.5 mg/dL (0.2-1.2); Calc. Creatinine Clearance 0 mL/min (70-130); Carbon Dioxide 37 mmol/L (22-29); Chloride 94 mmol/L (98-107); Estimated GFR 98; Glucose 117 mg/dL (70-105); Lipase 30 U/L (8-78); Protein, Total 7.1 g/dL (6.0-8.3); Sodium 143 mmol/L (136-145); Troponin I 0.034 ng/mL (< 0.028)
[2023-08-10 18:08] LABS: Potassium 2.5 mmol/L (3.5-5.1)
[2023-08-10] MEDS ORDERED: Potassium Chloride 20 MEQ TAB ONE (18:18)
[2023-08-10] MEDS ORDERED: Potassium Chloride 10 MEQ/100 ML PREMIX BAG ONE (18:32)
[2023-08-10] MEDS ORDERED: Sodium Chloride 0.9% 250 ML 250 ML ONE (18:32)
[2023-08-10] MEDS ORDERED: Aspirin Chewable 81 MG TAB ONE (18:33)
[2023-08-10] MEDS ORDERED: Morphine 4 MG/ML VIAL ONE (20:16)
[2023-08-10] MEDS ORDERED: Ondansetron PF 4 MG/2 ML Vial ONE (20:17)
== END 2023-08-10 20:41 | disposition short-term general hospital (02) ==
LOC: NAV ERS 16:12
DX: I21.4 Non-ST elevation (NSTEMI) myocardial infarction (principal); E87.6 Hypokalemia
CPT/HCPCS: 71045; 80053; 83690; 84484; 85025; 93005; 96365; 96366; 96375; J2270; J2405; J3480; J7050

== ENCOUNTER 2024-01-16 08:10 | Emergency (ER) | payer OTHER, MEDICARE ==
[2024-01-16] MEDS ORDERED: Ketorolac Tromethamine 60 MG/2 ML VIAL ONE (08:53)
== END 2024-01-16 09:33 | disposition home or self-care (01) ==
LOC: NAV ERS 08:10
DX: H00.012 Hordeolum externum right lower eyelid (principal); K21.9 Gastro-esophageal reflux disease without esophagitis; Z79.899 Other long term (current) drug therapy
CPT/HCPCS: 96372; 99283; J1885

== ENCOUNTER 2024-03-29 18:28 | Emergency (ER) | payer OTHER ==
[2024-03-29] MEDS ORDERED: Sodium Chloride 0.9% 1,000 ML ONE (19:24)
[2024-03-29] MEDS ORDERED: Aspirin Chewable 81 MG TAB ONE (19:24)
[2024-03-29] MEDS ORDERED: Acetaminophen 325 MG TAB ONE (19:24)
[2024-03-29 19:48] LABS: #Basophils 0.1 thou/uL (0.0-0.2); #Lymphocytes 2.7 thou/uL (1.20-3.40); #Monocytes 0.5 thou/uL (0.11-0.59); #Neutrophils 4.5 thou/uL (1.40-6.50); %Basophils 0.7 % (0.0-1.0); %Eosinophils 0.5 % (0.0-10.0); %Monocytes 6.8 % (0.0-10.0); %Neutrophils 57.9 % (42.0-75.0); Hematocrit 48.2 % (36.0-47.0); Hemoglobin 14.4 g/dL (12.0-16.0); Mean Corpuscular Hemoglobin 24.9 pg (27.0-31.0); Mean Corpuscular Volume 83.2 fl (78.0-98.0); Mean Platelet Volume 6.8 fL (7.4-10.4); Platelet Count 367 10x3/uL (130-400); RBC Distribution Width 13.4 % (11.5-14.5); Red Blood Cell (RBC) Count 5.79 mill/uL (4.20-5.40); White Blood Cell (WBC) Count 7.8 10x3/uL (4.8-10.8)
[2024-03-29 19:57] LABS: BHCG - Serum Negative (NEGATIVE); Pregs Control Bar Appear? YES (CONTROL BAR)
[2024-03-29 20:07] LABS: ALT (SGPT) 9 U/L (Less than 34); AST (SGOT) 28 U/L (11-34); Albumin 4.9 g/dL (3.1-4.5); Alkaline Phosphatase 68 U/L (40-110); BUN (Urea Nitrogen) 19 mg/dL (7.0-18.7); Bilirubin, Total 0.8 mg/dL (0.3-1.2); Calc. Creatinine Clearance 0 mL/min (70-130); Calcium 11.4 mg/dL (7.8-10.44); Estimated GFR 70; Globulin 3.7 g/dL (2.4-3.5); Glucose 155 mg/dL (70-105); Protein, Total 8.6 g/dL (6.0-8.3)
[2024-03-29 20:09] LABS: Troponin I Less than 0.010 ng/mL (< 0.028)
[2024-03-29 20:11] LABS: Chloride 83 mmol/L (98-107); Potassium 2.9 mmol/L (3.5-5.1); Sodium 141 mmol/L (136-145)
[2024-03-29 20:23] LABS: Carbon Dioxide 38 mmol/L (22-29)
[2024-03-29 20:24] LABS: Anion Gap 23 mmol/L (10-20)
[2024-03-29] MEDS ORDERED: Potassium Chloride 20 MEQ TAB ONE (20:45)
[2024-03-29 23:04] LABS: Troponin I Less than 0.010 ng/mL (< 0.028)
== END 2024-03-29 23:30 | disposition home or self-care (01) ==
LOC: NAV ERS 18:28
DX: B34.9 Viral infection, unspecified (principal); J06.9 Acute upper respiratory infection, unspecified; R07.2 Precordial pain; K21.9 Gastro-esophageal reflux disease without esophagitis; Z79.899 Other long term (current) drug therapy
CPT/HCPCS: 71045; 80053; 84484; 84703; 85025; 85379; 87081; 87428; 87430; 93005; J7030

== ENCOUNTER 2024-03-31 14:22 | Emergency (ER) | payer OTHER ==
[2024-03-31 15:01] LABS: Bilirubin Negative (Negative); Blood, Urine Large (Negative); Clarity Turbid (Clear); Glucose, Urine (Dipstick) Negative (Negative); Ketone, Urine 15 mg/dL (Negative); Leukocyte Moderate (Negative); Nitrite Negative (Negative); Protein, Urine (Dipstick) > or equal to 300 mg/dL (Neg-Trace); Urobilinogen > or = 8.0 mg/dL (Less than 2); pH, Urine 8.5 (5.0-9.0)
[2024-03-31 15:27] LABS: Bacteria/HPF 3+ HPF (None Seen); CAUTI Indications for Culture Dysuria,urgency,freq; Epithelial Cast 0-3 LPF (None Seen); RBC/HPF Greater than 50 HPF (0-3); WBC/HPF Greater than 50 HPF (0-3)
[2024-03-31 15:28] LABS: Urine Culture Reflex Yes Yes
[2024-03-31] MEDS ORDERED: Sulfameth/Trimethoprim DS 800-160mg TAB ONE (15:33)
== END 2024-03-31 15:47 | disposition home or self-care (01) ==
LOC: NAV ERS 14:22
DX: N39.0 Urinary tract infection, site not specified (principal); Z55.6 Problems related to health literacy
CPT/HCPCS: 81001; 87077; 87086; 87186; 99283